=== PATIENT | female | born 1950 | race Caucasian/White ===

== ENCOUNTER 2022-04-30 07:11 | Emergency (ER) | payer OTHER ==
[2022-04-30 09:13] LABS: ESTIMATED GFR 80 mL/min (>60)
[2022-04-30] MEDS ORDERED: Aspirin 81 MG Tab.Chew PO ONE (09:46)
[2022-04-30] MEDS ORDERED: Sodium Chloride 0.9% 50 ML IV ONE (09:54)
[2022-04-30] MEDS ORDERED: Sodium Chloride 0.9% 10 ML Syringe FLUSH ONE (09:54)
[2022-04-30] MEDS ORDERED: Iopamidol 755 Mg/ML 100 ML Bottle IV SCH (10:00)
== END 2022-04-30 11:15 | disposition home or self-care (01) ==
LOC: JP.ED 07:11
DX: G45.9 Transient cerebral ischemic attack, unspecified (principal); I10 Essential (primary) hypertension; Z79.899 Other long term (current) drug therapy; Z90.710 Acquired absence of both cervix and uterus
CPT/HCPCS: 36415; 70450; 70496; 70498; 80053; 85025; 85610; 99285; A9270; J3490; Q9967